=== PATIENT | female | born 1995 | race Caucasian/White ===

== ENCOUNTER 2019-11-07 15:55 | Inpatient (IN) | payer MEDICAID, OTHER ==
[~2019-11-07] VITALS: Ht 160 cm; Wt 108.9 kg
[2019-11-07] MEDS ORDERED: SODIUM CHLORIDE 0.9% 1,000 ML IV ONE (17:17)
[2019-11-07 19:37] LABS: BASOPHILS % 0.9 % (0.0-2.0); EOSINOPHILS % 2.1 % (0.0-5.0); HEMATOCRIT. 24.3 % (36.0-48.0); HEMOGLOBIN. 7.3 g/dL (12.0-16.0); LYMPHOCYTES % 26.9 % (20.0-50.0); MEAN CORPUSCULAR HEMOGLOBIN 18.7 pg (28.0-32.0); MEAN CORPUSCULAR VOLUME 61.8 fL (81.0-99.0); MEAN PLATELET VOLUME 9.1 fl (7.4-10.4); MONOCYTES % 6.1 % (2.0-8.0); PLATELET 249 x1000/uL (130-400); RED BLOOD CELL COUNT 3.93 mill/uL (4.2-5.4); RED CELL DISTRIBUTION WIDTH 19.2 % (11.6-14.6)
[2019-11-07 19:42] LABS: CHLORIDE 103 mEq/L (98-107)
[2019-11-07 19:43] LABS: INR 1.1; PROTHROMBIN TIME 11.5 sec (9.6-11.0)
[2019-11-07 19:49] LABS: HCG SCREEN NEGATIVE
[2019-11-07 19:54] LABS: B-HCG QUANTITATIVE < 1 mIU/mL (<3)
[2019-11-07 22:07] LABS: PLATELET ESTIMATE NORMAL
[2019-11-08] VITALS: BP 115/70
[2019-11-08 00:10] VITALS: BP 115/70
[2019-11-08 01:40] LABS: HEMATOCRIT 25.1 % (36.0-48.0); HEMOGLOBIN 7.6 g/dL (12.0-16.0); MEAN CORPUSCULAR HEMOGLOBIN 19.5 pg (28.0-32.0); MEAN CORPUSCULAR VOLUME 64.4 fL (81.0-99.0); PLATELET 225 x1000/uL (130-400); RED CELL DISTRIBUTION WIDTH 21.8 % (11.6-14.6)
[2019-11-08] MEDS ORDERED: IBUPROFEN 600MG TABLET PO PRN (03:45)
[2019-11-08 04:00] VITALS: BP 118/63
[2019-11-08 08:00] VITALS: BP 111/70
[2019-11-08 09:49] VITALS: BP 111/70
== END 2019-11-08 11:40 | disposition home or self-care (01) | DRG 532 ==
LOC: ER 15:55 → 6EST 20:09 → SUPCPDRO 20:58 → ENRESERV 22:48
PROVIDERS: ADMIT Obstetrics & Gynecology; ATTEND Obstetrics & Gynecology
PROC: 30233N1 Transfusion of Nonautologous Red Blood Cells into Peripheral Vein, Percutaneous Approach (ICD-10-PCS; principal; 2019-11-07)
DX: N93.8 Other specified abnormal uterine and vaginal bleeding (principal); D64.9 Anemia, unspecified
CPT/HCPCS: 36415; 76830; 76856; 80053; 84484; 84702; 84703; 85025; 85027; 86850; 86900; 86920; 93005; 96360; 96361; 99285; J7030; P9016

== ENCOUNTER 2020-05-31 03:11 | Inpatient (IN) | payer MEDICAID ==
[~2020-05-31] VITALS: Ht 160 cm; Wt 145.1 kg
[2020-05-31] MEDS ORDERED: SODIUM CHLORIDE 0.9% 1,000 ML IV ONE (04:12)
[2020-05-31] MEDS ORDERED: AZITHROMYCIN 500 MG in DEXT 5% WATER 250 ML IV ONE (04:15)
[2020-05-31] MEDS ORDERED: CEFTRIAXONE 1 G PREMIX 50 ML IV ONE (04:15)
[2020-05-31] MEDS ORDERED: CEFTRIAXONE 1 G PREMIX 50 ML IV NR (05:00)
[2020-05-31 05:54] LABS: CHLORIDE 105 mEq/L (98-107)
[2020-05-31 05:59] LABS: BASOPHILS % 0.5 % (0.0-2.0); EOSINOPHILS % 0.6 % (0.0-5.0); HEMATOCRIT. 29.9 % (36.0-48.0); HEMOGLOBIN. 8.7 g/dL (12.0-16.0); LYMPHOCYTES % 22.5 % (20.0-50.0); MEAN CORPUSCULAR HEMOGLOBIN 17.2 pg (28.0-32.0); MEAN CORPUSCULAR VOLUME 58.7 fL (81.0-99.0); MEAN PLATELET VOLUME 8.8 fl (7.4-10.4); MONOCYTES % 4.2 % (2.0-8.0); NEUTROPHILS % 72.2 % (40.0-76.0); PLATELET 232 x1000/uL (130-400); RED BLOOD CELL COUNT 5.09 mill/uL (4.2-5.4); RED CELL DISTRIBUTION WIDTH 22.1 % (11.6-14.6)
[2020-05-31 06:21] LABS: CLARITY URINE CLOUDY (CLEAR); COLOR URINE ORANGE (YELLOW); KETONES URINE NEGATIVE (NEGATIVE); LEUKOCYTE ESTERASE URINE 1+ (NEGATIVE); NITRITE URINE NEGATIVE (NEGATIVE); OCCULT BLOOD URINE 3+ (NEGATIVE); PROTEIN URINE 2+ (NEGATIVE); SPECIFIC GRAVITY URINE 1.027 (1.005-1.030)
[2020-05-31 06:22] LABS: PLATELET ESTIMATE NORMAL
[2020-05-31] MEDS ORDERED: KETOROLAC 15MG/ML VIAL IV PRN (06:45)
[2020-05-31] MEDS ORDERED: MAGNESIUM/ALUMINUM HYDROXIDE/SIMETHICONE 30ML UDC PO PRN (06:45)
[2020-05-31] MEDS ORDERED: NITROGLYCERIN 0.4MG TABLET SL SL PRN (06:45)
[2020-05-31] MEDS ORDERED: CLONIDINE 0.1MG TABLET PO PRN (06:45)
[2020-05-31] MEDS ORDERED: DOCUSATE SODIUM 100MG CAPSULE PO PRN (06:45)
[2020-05-31] MEDS ORDERED: ONDANSETRON HCL 4MG/2ML INJ IV PRN (06:45)
[2020-05-31] MEDS ORDERED: GUAIFENESIN 200MG/10ML SUGAR FREE UDC PO PRN (06:45)
[2020-05-31] MEDS ORDERED: IPRATROPIUM/ALBUTEROL 0.5-3(2.5)MG/3ML NEB ORI PRN (06:45)
[2020-05-31] MEDS ORDERED: ACETAMINOPHEN 325MG TABLET PO PRN ×2 (06:45)
[2020-05-31 07:14] LABS: TOTAL IRON BINDING CAPACITY 449 ug/dL (250-450)
[2020-05-31 07:39] LABS: VITAMIN B12 SERUM 835 pg/mL (211-911)
[2020-05-31 07:40] LABS: FOLIC ACID (FOLATE) SERUM > 20.00 ng/mL (>5.38)
[2020-05-31] MEDS ORDERED: GUAIFENESIN/DM 600MG/30MG ER TAB 12HR PO SCH (09:00)
[2020-05-31] MEDS: ASCORBIC ACID 500 MG TABLET PO SCH ×2 (09:00→12:35)
[2020-05-31] MEDS: ZINC SULFATE 220 MG ( 50 ) CAPSULE PO SCH (09:10)
[2020-05-31] MEDS: FERROUS SULFATE 300MG/5ML UDC PO SCH ×4 (09:10→18:34)
[2020-05-31] MEDS: FAMOTIDINE 20MG TABLET PO SCH ×2 (09:11→20:51)
[2020-05-31] MEDS ORDERED: ALBUTEROL 6.7GM HFA INHALER ORI PRN (12:00)
[2020-05-31 18:02] VITALS: BP 134/81
[2020-05-31 20:00] VITALS: BP 141/75
[2020-05-31] MEDS ORDERED: ZOLPIDEM TARTRATE 5MG TABLET PO PRN (20:00)
[2020-05-31] MEDS: GUAIFENESIN 600MG ER TABLET PO SCH (20:51)
[2020-05-31 21:20] LABS: *AMPHETAMINES SCREEN URINE NEGATIVE (NEGATIVE); *BARBITURATES SCREEN URINE NEGATIVE (NEGATIVE); *BENZODIAZEPINES SCREEN URINE NEGATIVE (NEGATIVE); *COCAINE SCREEN URINE NEGATIVE (NEGATIVE); METHADONE URINE SCREEN NEGATIVE (NEGATIVE); OPIATES URINE SCREEN NEGATIVE (NEGATIVE); PHENCYCLIDINE URINE SCREEN NEGATIVE (NEGATIVE)
[2020-05-31 21:21] LABS: CANNABINOID URINE SCREEN NEGATIVE (NEGATIVE)
[2020-06-01] VITALS: BP 132/83
[2020-06-01] MEDS ORDERED: AZITHROMYCIN 500 MG in DEXT 5% WATER 250 ML IV SCH ×2 (05:15→06:00)
[2020-06-01] MEDS ORDERED: CEFTRIAXONE 1 G PREMIX 50 ML IV SCH ×2 (06:00→08:00)
[2020-06-01 08:00] VITALS: BP 127/79
[2020-06-01] MEDS: ASCORBIC ACID 500 MG TABLET PO SCH (09:00)
[2020-06-01] MEDS: GUAIFENESIN 600MG ER TABLET PO SCH (09:00)
[2020-06-01] MEDS: FAMOTIDINE 20MG TABLET PO SCH (09:00)
[2020-06-01] MEDS: ZINC SULFATE 220 MG ( 50 ) CAPSULE PO SCH (09:00)
[2020-06-01] MEDS: FERROUS SULFATE 300MG/5ML UDC PO SCH ×3 (09:00→17:37)
[2020-06-01] MEDS: AZITHROMYCIN 500 MG in DEXT 5% WATER 250 ML IV SCH (09:18)
[2020-06-01] MEDS: CEFTRIAXONE 1,000 MG in DEXTROSE 5% WATER 50 ML IV SCH (11:00)
[2020-06-01 12:00] VITALS: BP 136/84
[2020-06-01 16:00] VITALS: BP 133/74
[2020-06-01] MEDS: ENOXAPARIN 150MG/ML SYR SUBCUT SCH (16:06)
[2020-06-01 20:00] VITALS: BP 134/73
[2020-06-01 21:34] LABS: INR 1.1; PROTHROMBIN TIME 11.3 sec (9.6-11.0)
[2020-06-02] VITALS: BP 121/79
[2020-06-02 04:00] VITALS: BP 115/75
[2020-06-02] MEDS: ASCORBIC ACID 500 MG TABLET PO SCH ×2 (07:26→09:01)
[2020-06-02] MEDS: ENOXAPARIN 150MG/ML SYR SUBCUT SCH ×2 (07:26→09:01)
[2020-06-02] MEDS: GUAIFENESIN 600MG ER TABLET PO SCH ×2 (07:26→09:01)
[2020-06-02] MEDS: FAMOTIDINE 20MG TABLET PO SCH ×2 (07:28→09:01)
[2020-06-02] MEDS: FERROUS SULFATE 300MG/5ML UDC PO SCH (09:00)
[2020-06-02] MEDS: CEFTRIAXONE 1,000 MG in DEXTROSE 5% WATER 50 ML IV SCH (09:01)
[2020-06-02] MEDS: ZINC SULFATE 220 MG ( 50 ) CAPSULE PO SCH (09:01)
[2020-06-02] MEDS: AZITHROMYCIN 500 MG in DEXT 5% WATER 250 ML IV SCH (09:02)
[2020-06-02 11:52] VITALS: BP 111/71
== END 2020-06-02 12:28 | disposition home or self-care (01) | DRG 720 ==
LOC: ER 03:11 → 7WST 04:51 → EDBEDREQSVC 05:06 → EDBEDREQ 05:06 → EDBEDREQTM 05:06 → ENRESERV 16:59
PROVIDERS: ADMIT Internal Medicine; ATTEND Internal Medicine
DX: A41.89 Other specified sepsis (principal); U07.1 COVID-19; J12.89 Other viral pneumonia; J96.01 Acute respiratory failure with hypoxia; D50.9 Iron deficiency anemia, unspecified; E44.1 Mild protein-calorie malnutrition; E66.9 Obesity, unspecified; Z68.43 Body mass index [BMI] 50.0-59.9, adult; N39.0 Urinary tract infection, site not specified; R74.0 Nonspecific elevation of levels of transaminase and lactic acid dehydrogenase [LDH]; Z79.899 Other long term (current) drug therapy
CPT/HCPCS: 36415; 71045; 80053; 80305; 81003; 82607; 82746; 83036; 83540; 83550; 83605; 83880; 84145; 85025; 87635; 94640; 96365; 99285; J0456; J0696; J1650; J7030; J7060